=== PATIENT | female | born 1955 | race Caucasian/White ===

== ENCOUNTER → 2020-09-20 | Outpatient (CLI) | payer OTHER | END | disposition home or self-care (01) | LOC: LABWHC1 09:01 | PROVIDERS: ATTEND Surgery | DX: Z20.822 Contact with and (suspected) exposure to COVID-19 (principal) | CPT/HCPCS: U0003; C9803; U0005 ==

== ENCOUNTER 2020-09-27 08:09 | Day surgery (SDC) | payer BC, OTHER ==
[2020-09-25 13:44] VITALS: BMI 20.4
[~2020-09-27 08:09] MED LIST: LACTATED RINGERS 1,000 ML IV SCH; LIDOCAINE 1% (10MG/ML) FOR IV START INTRADERMA PRN
[2020-09-27 08:53] VITALS: RESP 16; TEMP 97.8
[2020-09-27] MEDS ORDERED: PROPOFOL 10 MG/ML 20 ML VIAL IV ONE (09:11)
--- NOTE | 2020-09-27 09:41 | P.PCN ---
Date of Procedure: 09/27/20 Preoperative Diagnosis: GI bleed Postoperative Diagnosis: Gastritis Ascending colon polyp Diverticulosis Procedure(s) Performed: EGD with biopsy Colonoscopy with hot snare polypectomy Anesthesia: MAC Surgeon: Saulo Teague Pathology: other (Biopsy of duodenum, antrum, esophagus, polyp of the ascending colon) Condition: stable Disposition: same day Indications for Procedure: 64-year-old female presents for upper and lower endoscopy. She has had recent dark stool and concern for GI bleed. She was explained risks, benefits and alternatives to the procedure and did provide consent prior to attending the endoscopy suite. Operative Findings: Gastritis Ascending colon polyp Diverticulosis Description of Procedure: The patient was brought into the endoscopy suite and placed in left lateral cutis position and adequate sedation was achieved using conscious sedation. A bite block was placed and an endoscope was placed in the oropharynx and advanced under endoscopic visualization. An endoscope was advanced through the esophagus and into the stomach, through the gastric antrum and into the pylorus. The third portion of the duodenum was visualized. The endoscope was then slowly withdrawn. The first portion of duodenum was noted to have mild inflammatory changes. Biopsies were taken. The antrum was noted to have mild inflammatory changes. Biopsies were taken. The gastric body distended normally and the gastric folds appeared normal and flattened with insufflation. A retroflexed view the fundus and GE junction revealed no significant hiatal hernia. Esophagus appeared endoscopically normal. Biopsies were taken. Excess air was removed and the scope was withdrawn. A digital rectal exam was performed and mild internal hemorrhage or palpated. An endoscope was then placed in the rectum and advanced to the cecum as identified by landmarks including the appendiceal orifice and the ileocecal valve. The prep was good. The colonoscope was then slowly withdrawn, examining for any mucosal abnormalities. The cecum, ascending, transverse, descending and sigmoid colon were visualized adequately. A small polyp was noted in the ascending colon and this was removed with hot snare polypectomy. There was no evidence of any large neoplastic lesion. A mild amount of diverticulosis was also noted in the sigmoid colon. Retroflexion was performed in the rectum and internal hemorrhoids were visible. Excess air was removed, the colonoscope withdrawn and the procedure terminated. The patient was then transferred to the recovery unit in stable condition. Repeat colonoscopy should be performed in 5 years.
[2020-09-27 09:51] VITALS: BP 102/65; PULSE 69
== END 2020-09-27 10:24 | disposition home or self-care (01) ==
LOC: ORWHC2ENDO 08:09
PROVIDERS: ATTEND Surgery
DX: D12.2 Benign neoplasm of ascending colon (principal); K57.30 Diverticulosis of large intestine without perforation or abscess without bleeding; D72.820 Lymphocytosis (symptomatic); K29.50 Unspecified chronic gastritis without bleeding; K21.9 Gastro-esophageal reflux disease without esophagitis; D64.9 Anemia, unspecified; K64.8 Other hemorrhoids; E03.9 Hypothyroidism, unspecified; Z90.89 Acquired absence of other organs; Z79.890 Hormone replacement therapy; Z79.899 Other long term (current) drug therapy
CPT/HCPCS: 88305; 45385; 43239; J2704

== ENCOUNTER 2022-08-03 15:58 | Emergency (ER) | payer OTHER ==
[2022-08-03 16:12] VITALS: RESP 18; TEMP 97.8
[2022-08-03] MEDS ORDERED: SODIUM CHLORIDE 0.9% 1,000 ML IV STA ×2 (16:37)
--- NOTE | 2022-08-03 16:48 | ED ---
General Adult HPI - General Chief complaint: Recheck/Abnormal Lab/Rx Stated complaint: abnormal labs Time Seen by Provider: 08/03/22 16:29 Source: patient Mode of arrival: ambulatory Limitations: no limitations - History of Present Illness Initial comments: This 66-year-old female presents with atrial fibrillation. She was seen at primary care's office for flulike symptoms and they noted that she is in atrial fibrillation with rapid ventricular response. They obtained an EKG which shows a heart rate of 176 which is irregular consistent with atrial fibrillation. She denies any history of atrial fibrillation. She denies any shortness of breath o r chest pain. There is no leg pain or swelling. She does relate having a cough with clear production over the past 2 days. There's been no fever. She has had some mild nasal congestion. She took a home COVID-19 test which is negative. She has had her flu shot this year. She denies any prior cardiac disease. She states that she normally is very healthy and works out regularly. She denies a [place] known sick exposures but did want her children approximately 5 days ago. She denies any palpitations. She states that she overall feels fine currently. No other complaints or modifying factors. Her blood pressure apparently was slightly low and the doctor's office with a systolic pressure of 88. - Related Data Home Medications Medication Instructions Recorded Confirmed Levothyroxine Sodium [Synthroid] 150 mcg PO DAILY 09/25/20 08/03/22 Iron(Unknown) 1 tab PO DAILY 08/03/22 08/03/22 Turmeric(Unknown) 1 tab PO DAILY 08/03/22 08/03/22 Previous Rx's Medication Instructions Recorded Apixaban [Eliquis] 5 mg PO BID #60 tab 08/03/22 Allergies Allergy/AdvReac Type Severity Reaction Status Date / Time No Known Allergies Allergy Verified 08/03/22 18:08 Review of Systems ROS Statement: Those systems with pertinent positive or pertinent negative responses have been documented in the HPI. ROS Other: All systems not noted in ROS Statement are negative. Past Medical History Additional Past Medical History / Comment(s): Hypothyroidism History of Any Multi-Drug Resistant Organisms: None Reported Past Surgical History: Tonsillectomy Past Psychological History: No Psychological Hx Reported Smoking Status: Never smoker Past Alcohol Use History: Occasional Past Drug Use History: None Reported General Exam - General Exam Comments Initial Comments: GENERAL: The patient is well nourished and well hydrated. VITAL SIGNS: Heart rate, blood pressure, respiratory rate reviewed as recorded in nurse's notes. EYES: Pupils are round and reactive. Extraocular movements are intact. No conjunctival / lid redness or swelling. ENT: No external evidence of injury, swelling, or ecchymosis. Airway is patent. Throat is clear. NECK: Nontender. No swelling or evidence of injury. No subcutaneous emphysema. Trachea is midline. No thyroid mass. HEART: Tachycardic, irregular heart rate. No peripheral edema noted. LUNGS/CHEST: Breath sounds clear and equal bilaterally. No rales, rhonchi, or wheezes. No ecchymosis, subcutaneous emphysema, or tenderness. ABDOMEN: Abdomen soft without tenderness. No palpable masses or organomegaly. No peritoneal signs. No abdominal wall swelling or ecchymosis. EXTREMITIES: No extremity tenderness. Normal muscle tone and function. No thoracolumbar tenderness. NEUROLOGIC: Sensation is grossly intact. Cranial nerve exam reveals face is symmetrical, tongue is midline, speech is clear. SKIN: No abrasions or ecchymosis is noted. No induration or masses noted. PSYCHIATRIC: Alert and oriented. Appropriate behavior and judgment. Limitations: no limitations Course Vital Signs 08/03/22 08/03/22 08/03/22 16:07 17:06 17:39 Temperature 97.8 F Pulse Rate 158 H 106 H 101 H Respiratory 18 18 Rate Blood Pressure 106/53 102/72 O2 Sat by Pulse 98 98 Oximetry Medical Decision Making - Medical Decision Making The patient was seen and examined. All diagnostics are reviewed. She is placed on a monitoring engineer and this shows an irregular tachycardic rhythm around 170. EKG is done and this shows atrial fibrillation with rapid ventricular response at a heart rate of 171. There is no ST elevation identified. There is some T- wave inversion noted in 3 and aVF. The QRS duration is 72, and the QTc interval is 346. An IV is established. She also receives some fluid hydration. The influenza test came back positive. The laboratories unremarkable. Chest x-ray is negative. Prior to starting Cardizem, patient spontaneously converted to a normal sinus rhythm. Her repeat EKG shows a sinus rhythm at 100. There is no acute ST elevation identified. There is minimal ST T-wave abnormalities in V1 and V2. She was asymptomatic in regards to the atrial fibrillation initially and remains asymptomatic. Case is discussed with Dr. Rader from cardiology and he would like patient to be started on Eliquis and is okay with discharge home and follow-up with the unhairing inspector within one week. He would like Eliquis at 5 mg twice a day. Patient is agreeable with this plan. It is not felt as though she needs Tamiflu at this time as she relates that her symptoms started this past Wednesday which is 3 days ago. Asthmatic treatment recommended. Return parameters are discussed. - Lab Data Result diagrams: 08/03/22 16:42 08/03/22 16:42 Lab Results 08/03/22 08/03/22 08/03/22 Range/Units 16:42 16:42 16:42 WBC 9.6 (3.8-10.6) k/uL RBC 4.45 (3.80-5.40) m/uL Hgb 12.8 (11.4-16.0) gm/dL Hct 37.8 (34.0-46.0) % MCV 84.8 (80.0-100.0) fL MCH 28.7 (25.0-35.0) pg MCHC 33.8 (31.0-37.0) g/dL RDW 14.4 (11.5-15.5) % Plt Count 341 (150-450) k/uL MPV 8.6 Neutrophils % 75 % Lymphocytes % 9 % Monocytes % 14 % Eosinophils % 0 % Basophils % 1 % Neutrophils # 7.2 (1.3-7.7) k/uL Lymphocytes # 0.8 L (1.0-4.8) k/uL Monocytes # 1.3 H (0-1.0) k/uL Eosinophils # 0.0 (0-0.7) k/uL Basophils # 0.1 (0-0.2) k/uL PT 9.5 (9.0-12.0) sec INR 0.9 (<1.2) APTT 27.5 (22.0-30.0) sec Sodium 138 (137-145) mmol/L Potassium 4.2 (3.5-5.1) mmol/L Chloride 104 (98-107) mmol/L Carbon Dioxide 24 (22-30) mmol/L Anion Gap 10 mmol/L BUN 15 (7-17) mg/dL Creatinine 0.84 (0.52-1.04) mg/dL Est GFR (CKD-EPI)AfAm 83 (>60 ml/min/1.73 sqM) Est GFR (CKD-EPI)NonAf 72 (>60 ml/min/1.73 sqM) Glucose 118 H (74-99) mg/dL Calcium 9.4 (8.4-10.2) mg/dL Magnesium 1.9 (1.6-2.3) mg/dL Total Bilirubin 0.3 (0.2-1.3) mg/dL AST 46 H (14-36) U/L ALT 28 (4-34) U/L Alkaline Phosphatase 78 (38-126) U/L Troponin I (0.000-0.034) ng/mL NT-Pro-B Natriuret Pep pg/mL Total Protein 7.4 (6.3-8.2) g/dL Albumin 4.2 (3.5-5.0) g/dL Influenza Type A (PCR) (Not Detectd) Influenza Type B (PCR) (Not Detectd) RSV (PCR) (Not Detectd) SARS-CoV-2 (PCR) (Not Detectd) 08/03/22 08/03/22 08/03/22 Range/Units 16:42 16:42 16:42 WBC (3.8-10.6) k/uL RBC (3.80-5.40) m/uL Hgb (11.4-16.0) gm/dL Hct (34.0-46.0) % MCV (80.0-100.0) fL MCH (25.0-35.0) pg MCHC (31.0-37.0) g/dL RDW (11.5-15.5) % Plt Count (150-450) k/uL MPV Neutrophils % % Lymphocytes % % Monocytes % % Eosinophils % % Basophils % % Neutrophils # (1.3-7.7) k/uL Lymphocytes # (1.0-4.8) k/uL Monocytes # (0-1.0) k/uL Eosinophils # (0-0.7) k/uL Basophils # (0-0.2) k/uL PT (9.0-12.0) sec INR (<1.2) APTT (22.0-30.0) sec Sodium (137-145) mmol/L Potassium (3.5-5.1) mmol/L Chloride (98-107) mmol/L Carbon Dioxide (22-30) mmol/L Anion Gap mmol/L BUN (7-17) mg/dL Creatinine (0.52-1.04) mg/dL Est GFR (CKD-EPI)AfAm (>60 ml/min/1.73 sqM) Est GFR (CKD-EPI)NonAf (>60 ml/min/1.73 sqM) Glucose (74-99) mg/dL Calcium (8.4-10.2) mg/dL Magnesium (1.6-2.3) mg/dL Total Bilirubin (0.2-1.3) mg/dL AST (14-36) U/L ALT (4-34) U/L Alkaline Phosphatase (38-126) U/L Troponin I <0.012 (0.000-0.034) ng/mL NT-Pro-B Natriuret Pep 245 pg/mL Total Protein (6.3-8.2) g/dL Albumin (3.5-5.0) g/dL Influenza Type A (PCR) Detected A (Not Detectd) Influenza Type B (PCR) Not Detected (Not Detectd) RSV (PCR) Not Detected (Not Detectd) SARS-CoV-2 (PCR) Not Detected (Not Detectd) Disposition Clinical Impression: Atrial fibrillation with rapid ventricular response, Upper respiratory infection, Influenza Disposition: HOME SELF-CARE Condition: Good Prescriptions: Apixaban [Eliquis] 5 mg PO BID #60 tab Is patient prescribed a controlled substance at d/c from ED?: No Referrals: Julio Gonsalez DO [Primary Care Provider] - 1-2 days Time of Disposition: 19:05
--- NOTE | 2022-08-03 17:03 | XR ---
EXAMINATION TYPE: XR chest 2V DATE OF EXAM: 08/03/2022 COMPARISON: NONE HISTORY: Atrial fibrillation TECHNIQUE: 2 views FINDINGS: Heart is normal. Lungs are clear of infiltrate. There is mild pectus excavatum chest deform ity. There are no hilar masses. There are chest leads. Thoracic spine is intact. IMPRESSION: No active cardiopulmonary disease. Normal heart.
[2022-08-03 17:05] LABS: Basophils # (A) 0.1 k/uL (0-0.2); Basophils % (A) 1 %; Eosinophils % (A) 0 %; HCT 37.8 % (34.0-46.0); HGB 12.8 gm/dL (11.4-16.0); Lymphocytes # (A) 0.8 k/uL (1.0-4.8); Lymphocytes % (A) 9 %; MCH 28.7 pg (25.0-35.0); MCHC 33.8 g/dL (31.0-37.0); MCV 84.8 fL (80.0-100.0); Mean Platelet Volume 8.6; Monocytes # (A) 1.3 k/uL (0-1.0); Monocytes % (A) 14 %; Neutrophils # (A) 7.2 k/uL (1.3-7.7); Neutrophils % (A) 75 %; Platelet Count 341 k/uL (150-450); RBC 4.45 m/uL (3.80-5.40); RDW 14.4 % (11.5-15.5); WBC 9.6 k/uL (3.8-10.6)
[2022-08-03 17:06] VITALS: BP 102/72
[2022-08-03 17:11] LABS: Albumin 4.2 g/dL (3.5-5.0); Calcium 9.4 mg/dL (8.4-10.2); INR 0.9 (<1.2); Magnesium 1.9 mg/dL (1.6-2.3); Partial Thromboplastin Time 27.5 sec (22.0-30.0); Potassium 4.2 mmol/L (3.5-5.1); Prothrombin Time 9.5 sec (9.0-12.0); Total Bilirubin 0.3 mg/dL (0.2-1.3); Total Protein 7.4 g/dL (6.3-8.2)
[2022-08-03] MEDS ORDERED: DILTIAZEM 125 MG in SODIUM CHLORIDE 0.9% 100 ML IV SCH (17:30)
[2022-08-03 17:40] VITALS: PULSE 101
== END 2022-08-03 19:30 | disposition home or self-care (01) ==
LOC: EC 15:58
DX: I48.20 Chronic atrial fibrillation, unspecified (principal); J11.1 Influenza due to unidentified influenza virus with other respiratory manifestations; E03.9 Hypothyroidism, unspecified; Z79.890 Hormone replacement therapy; Z20.822 Contact with and (suspected) exposure to COVID-19
CPT/HCPCS: 36415; 71046; 80053; 83735; 83880; 84484; 85025; 85610; 85730; 87636; 93005; 96360; 99284

== ENCOUNTER → 2025-03-02 | Outpatient (CLI) | payer OTHER ==
--- NOTE | 2025-03-02 13:51 | CT ---
EXAMINATION TYPE: CT shoulder LT wo con CT DLP: 287 mGycm, Automated exposure control for dose reduction was used. DATE OF EXAM: 03/02/2025 10:25 AM COMPARISON: No direct comparisons CLINICAL INDICATION:Female, 69 years old with history of M19.012 PRIMARY OSTEOARTHRITIS, LEFT SHOULDE R; PHH, Primary osteoarthritis, pre op LT shoulder TECHNIQUE: Axial images were obtained of the left shoulder without the use of IV contrast. Additiona l coronal and sagittal reformatted images and soft tissue and bone window were obtained for review. 3 -D reconstruction was created on a separate workstation. FINDINGS: There is no evidence of fracture, subluxation, or dislocation. Joint space narrowing of th e glenohumeral joint with inferior spurring of the humeral head medially. Subchondral cystic changes involving the glenoid. Mild AC joint arthropathy with capsular hypertrophy. No significant soft tissu e swelling or joint effusion is identified. No focal muscular atrophy or edema is identified. Subacro mion bursa distention. Calcific tendinosis involving the supraspinatus tendon with a 7 mm calcificati on. No radiopaque foreign body identified. The visualized portion of the left lung is clear. IMPRESSION: 1. No acute fracture or dislocation. 2. Advanced osteoarthritic changes of the left shoulder. 3. Mild AC joint arthropathy. 4. Calcific tendinosis involving the supraspinatus tendon. [facility], , 03/02/2025 1:49 PM
== END | disposition home or self-care (01) ==
LOC: RADCTMAIN 10:00
PROVIDERS: ATTEND Orthopaedic Surgery Sports Medicine
DX: M19.012 Primary osteoarthritis, left shoulder (principal); M67.814 Other specified disorders of tendon, left shoulder